=== PATIENT | male | born 1990 | race Caucasian/White ===

== ENCOUNTER 2018-09-01 11:10 | Emergency (ER) | payer BC, OTHER ==
[2018-09-01] MEDS ORDERED: IBUPROFEN 200 MG TAB PO ONE (11:40)
--- NOTE | 2018-09-01 11:44 | EDPHY ---
H & P Time Seen by Provider: 09/01/18 11:27 HPI/ROS: CHIEF COMPLAINT: Abdominal pain HISTORY OF PRESENT ILLNESS: 27-year-old male presents emergency department reporting that he developed an area of right lower quadrant tightness around 9: 00 a.m. this morning. Pain is worse with certain movements and better if he lays down or stays still. No radiation of the discomfort. No urinary complaints, no nausea, no vomiting, no diarrhea, no fever, no chills. He feels like the area may be slightly swollen. No history of hernias. No ill contacts. No recent travel. Patient does report that he spent yesterday at work with his arms above his head holding up heavy objects, as he works cars. No history of surgery. REVIEW OF SYSTEMS: A comprehensive 10 system review of systems was reviewed and is otherwise negative aside from elements mentioned in the history of present illness and medical decision making. PAST MEDICAL HISTORY: Asthma. Patient takes no medications. SOCIAL HISTORY: Smoker, rare alcohol use, no illicit drug use. VITAL SIGNS Reviewed by me. GENERAL: Well-developed, well-nourished, resting comfortably in no respiratory distress. Pleasant and conversant. HEENT: Atraumatic. Eyes: No icterus, no injection. Mouth: moist mucous membranes. No erythema or lesions. Neck: supple with no adenopathy. LUNGS: Clear to auscultation bilaterally, no wheezes, rhonchi or rales. CARDIAC: Regular rate and rhythm, no rubs, murmurs or gallops. ABDOMEN: Soft, no tenderness to palpation lie flat. Nondistended. No abdominal wall hernia appreciated with contraction of the abdominal muscles. Normal testicles. When patient is standing, and twists side to side, he indicates the area pain is in his lower anterior abdominal oblique muscles. No inguinal hernia appreciated. BACK: No CVA tenderness. EXTREMITIES: No trauma. No edema. Range of motion is normal throughout. NEURO: Alert and oriented, grossly nonfocal. SKIN: Warm and dry, no rash. PSYCHIATRIC: Normal mentation, no agitation. Smoking Status: Former smoker Constitutional: Initial Vital Signs Temperature (C) 36.9 C 09/01/18 11:15 Heart Rate 74 09/01/18 11:15 Respiratory Rate 16 09/01/18 11:15 Blood Pressure 135/84 H 09/01/18 11:15 O2 Sat (%) 98 09/01/18 11:15 O2 Delivery Mode Room Air Allergies/Adverse Reactions: No Known Allergies Allergy (Unverified 09/01/18 11:22) Home Medications: Medication Instructions Recorded Albuterol PRN 09/01/18 Medical Decision Making ED Course/Re-evaluation: 27-year-old male with a short duration of right lower quadrant pain. Pain is worse with certain movements and appears to be abdominal wall tenderness from the abdominal musculature, potentially the obliques. Labs including CBC, chemistries, and urinalysis were normal. Patient was given abdominal pain precaution instructions. I do not believe any advanced imaging studies are needed at this time. He understands reasons to return to the emergency department. Differential Diagnosis: After obtaining the patient's history and performing an examination, differential diagnosis considered included but was not limited to constipation, appendicitis, kidney stone, gastroenteritis, hernia, internal hernia, inguinal hernia. - Data Points Laboratory Results: 09/01/18 11:54 POC Sodium 144 mEq/L mEq/L (135-145) POC Potassium 3.9 mEq/L mEq/L (3.3-5.0) POC Chloride 104.0 mEq/L mEq/L (97-110) POC Total CO2 25 mEq/L mEq/L (22-31) POC BUN 19 mg/dL mg/dL (7-23) POC Creatinine 1.0 mg/dL mg/dL (0.7-1.3) POC Glucose 88 mg/dL mg/dL (70-100) POC Calcium 9.9 mg/dL mg/dL (8.5-10.4) Medications Given: Discontinued Medications Ibuprofen (Motrin) 400 mg PO EDNOW ONE Stop: 09/01/18 11:41 Last Admin: 09/01/18 11:48 Dose: 400 mg Point of Care Test Results: CBC CBC Collection Date 09/01/18 CBC Collection Time 11:48 WBC 4.2 RBC 5.19 HGB 15.6 HCT 45.6 PLT 216 Neut # 2.3 Neut 55.9 LYMPH # 1.6 LYMPH 37 Other WBC # 0.3 Other WBC 7.1 MCV 87.9 Chemistry 09/01/18 11:54 POC Sodium 144 mEq/L mEq/L (135-145) POC Potassium 3.9 mEq/L mEq/L (3.3-5.0) POC Chloride 104.0 mEq/L mEq/L (97-110) POC Total CO2 25 mEq/L mEq/L (22-31) POC BUN 19 mg/dL mg/dL (7-23) POC Creatinine 1.0 mg/dL mg/dL (0.7-1.3) POC Glucose 88 mg/dL mg/dL (70-100) POC Calcium 9.9 mg/dL mg/dL (8.5-10.4) Urine Dip Collection Date 09/01/18 Collection Time 11:48 Specific [place] (1.002-1.030) 1.015 PH (5.0-7.5) 7.0 Leukocytes (Negative) Negative Nitrites (Negative) Negative Protein (Negative) Negative Glucose (Negative) Negative Ketones (Negative) Negative Urobilnogen (0.2-1.0 EU) 0.2 Bilirubin (Negative) Negative Blood (Negative) Negative Departure - Departure Disposition: Home, Routine, Self-Care Clinical Impression: suspect abdominal wall pain Abdominal pain Qualifiers: Abdominal location: right lower quadrant Qualified Code(s): R10.31 - Right lower quadrant pain Condition: Good Instructions: Inguinal Hernia (ED), Acute Abdominal Pain (ED) Additional Instructions: Your laboratory evaluation in the emergency department is normal. On exam, I suspect that the pain may be related to the abdominal wall of the abdomen. Please take ibuprofen 600 mg every 6-8 hours with food for the next several days for both pain and inflammation. Return to the emergency department or seek care urgently if you develop worsening symptoms despite taking the ibuprofen, especially if he develops a fever, vomiting, significant pain with eating, lack of appetite, diarrhea, blood in your urine, or other concerns. Referrals: Carlos Farris MD [Primary Care Provider] - As per Instructions
[2018-09-01 12:40] VITALS: BP 102/74
== END 2018-09-01 12:05 | disposition home or self-care (01) ==
LOC: CED 11:10
DX: R10.31 Right lower quadrant pain (principal)
CPT/HCPCS: 80048-PO